=== PATIENT | male | born 1950 ===

== ENCOUNTER 2019-08-18 12:38 | Emergency (ER) | payer MEDICARE, OTHER ==
[2019-08-18 12:52] VITALS: BP 136/94
--- NOTE | 2019-08-18 13:13 | UC ---
Abdominal Pain Male HPI - HPI Summary HPI Summary: Mr. Navarrete started with a crampy, "broad" abdominal pain about 10 AM. He points to his periumbilical area. He has no nausea, vomiting or change in his bowel or bladder habits. His pain was an 8 or 9 at hime and he called his daughter who is a [employer]. She recommended that he come and he began to improve on the way here. He is now having a similar haro that is about a 4. - History of Current Complaint Chief Complaint: UCAbdominalPain Stated Complaint: ABDOMINAL PAIN Time Seen by Provider: 08/18/19 12:57 Hx Obtained From: Patient Onset/Duration: Sudden Onset Timing: Constant Severity Initially: Severe Severity Currently: Moderate Pain Intensity: 4 Location: Other - periumbilical Radiates: No Character: Cramping, Dull Aggravating Factor(s): Nothing Alleviating Factor(s): Nothing Associated Signs And Symptoms: Positive: Negative - Allergies/Home Medications Allergies/Adverse Reactions: Allergies Allergy/AdvReac Type Severity Reaction Status Date / Time No Known Allergies Allergy Verified 08/18/19 12:44 Home Medications: Home Medications Simethicone [Gas-X Extra Strength] 350 mg PO ONCE 08/18/19 [History Confirmed ] Tadalafil [Cialis] 5 mg PO DAILY 08/18/19 [History Confirmed 08/18/19] Testosterone 2.5 gm TD DAILY 08/18/19 [History Confirmed 08/18/19] PMH/Surg Hx/FS Hx/Imm Hx GI/ History: Other - BPH - Surgical History Surgical History: Yes Surgery Procedure, Year, and Place: vasectomy - Social History Alcohol Use: None Substance Use Type: None Smoking Status (MU): Never Smoked Tobacco Review of Systems All Other Systems Reviewed And Are Negative: Yes Constitutional: Positive: Negative Skin: Positive: Negative Respiratory: Positive: Negative Cardiovascular: Positive: Negative Gastrointestinal: Positive: Abdominal Pain. Negative: Vomiting, Diarrhea, Nausea Genitourinary: Positive: Negative Musculoskeletal: Positive: Negative Physical Exam - Summary Physical Exam Summary: He is nontoxic in appearance with stable vital signs and in no acute distress. Triage Information Reviewed: Yes Appearance: Well-Appearing, No Pain Distress Vital Signs: Initial Vital Signs Temp 97.2 F 08/18/19 12:46 Pulse 65 08/18/19 12:46 Resp 18 08/18/19 12:46 BP 136/94 08/18/19 12:46 Pulse Ox 99 08/18/19 12:46 Vital Signs Reviewed: Yes ENT Exam: Normal Neck exam: Normal Respiratory Exam: Normal Cardiovascular Exam: Normal Abdominal Exam: Normal - He has mild periumbilical and right lower quadrant tenderness. He is a little bit tympanitic to percussion and his bowel sounds are hyperactive. Bowel Sounds: Positive: Hyperactive Musculoskeletal Exam: Normal Skin Exam: Normal Abd Pain Male Course/Dx - Course Course Of Treatment: We don't have much to offer him here today we do not have CT scan or ultrasound or labs. I recommended an emergency department evaluation for his abdominal pain however I gave him the option of home and waiting to see what would develop. He chose the latter and understands that if his pain worsens or develops any fever or vomiting he should go immediately to the emergency department. If his pain does not resolve in the next several hours she should follow-up with his physician or go to the emergency department. He attributes this to a medially had fairly late last night at his daughter's house which had legumes and brassicas and that those caused him to have gas. - Differential Dx/Clinical Impression Provider Diagnosis: Abdominal pain Discharge ED - Sign-Out/Discharge Documenting (check all that apply): Patient Departure All imaging exams completed and their final reports reviewed: No Studies - Discharge Plan Condition: Stable Disposition: HOME Patient Education Materials: Acute Abdominal Pain (ED) Referrals: Viet Berman MD [Primary Care Provider] - Additional Instructions: If your abdominal pain worsens or he develop any new symptoms such as fever or vomiting please go immediately to the emergency department for further evaluation. It is reasonable for you to go to the emergency department now even though the pain has improved since it is not completely resolved. - Billing Disposition and Condition Condition: STABLE Disposition: Home
== END 2019-08-18 13:21 | disposition home or self-care (01) ==
LOC: UCEAST 12:38
DX: R10.9 Unspecified abdominal pain (principal)
CPT/HCPCS: 99211; G0463